=== PATIENT | male | born 1980 | race Caucasian/White ===

== ENCOUNTER 2018-09-16 06:11 | Day surgery (SDC) | payer BC, OTHER ==
[~2018-09-16] VITALS: Ht 180.3 cm; Wt 97.1 kg
[~2018-09-16 06:11] MED LIST: CLARITIN10 MG PO; NABUMETONE 500500 M1 PO; OMEPRAZOLE40 MG PO
[2018-09-16 09:36] VITALS: BP 130/76
[2018-09-16 14:32] VITALS: BP 130/76
--- NOTE | 2018-09-18 07:03 | O ---
[address] [address] OPERATIVE REPORT Name: LEAH COOK II Room #: DEP [facility]..#: [id number] Admission: 09/16/18 ������������������ Attend Phys: Ashok Cantor MD Discharge: 09/16/18 ������������������ Date of : 82 Report #: [id number] THIS REPORT FOR: //name// CC: SUNITHA Cantor Physician staff DATE OF SERVICE: 09/16/2018 SERVICE: Orthopedics. FACILITY: [facility]. SURGEON: Ashok Cantor MD PANTRY CHEF: Kayla Beal NP. PREOPERATIVE DIAGNOSES: 1. Left hip pain. 2. Left hip impingement syndrome. 3. Left hip labral tear. POSTOPERATIVE DIAGNOSES: 1. Left hip pain. 2. Left hip impingement syndrome. 3. Left hip labral tear. 4. Left hip acetabular chondromalacia. PROCEDURE: 1. Left hip arthroscopic labral repair. 2. Left hip arthroscopic extraarticular subspine acetabuloplasty. 3. Left hip arthroscopic Cam osteochondroplasty. 4. Left hip arthroscopic chondroplasty of the acetabulum. ANESTHESIA: General with regional. COMPLICATIONS: None. DRAINS: None. SPECIMENS: None. FINDINGS: 1. Significant labral tear, treated with Ana CinchLock suture anchor x 3. 2. Grade 3 chondral lesion of the acetabulum with a focal area of grade 4 chondromalacia in the joint. The Gr [address] [address] OPERATIVE REPORT Name: LEAH COOK II Room #: [facility]P [facility].#: [id number] Admission: 09/16/18 ������������������ Attend Phys: Ashok Cantor MD Discharge: 09/16/18 ������������������ Date of : 82 Report #: [id number] was all treated with chondroplasty and was approximately 50% partial thickness pathology. There was a focal area of grade 4 chondromalacia measuring approximately 2 x 1 mm in size. There were no further unstable flap components. 3. Pronounced ridge on the femoral neck causing the Cam impingement with dense bone in this location, treated with Cam osteoplasty. 4. Capsule closed with #2 Vicryl x 5. 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 He is having a long history of many years of left hip pain that has failed extensive conservative measures including physical therapy, rest, activity modifications, oral medications. He has had injections as well, all without sufficient relief. He had imaging, which was suggestive of Cam impingement and he did have a protruding osteophyte of sorts on the femoral neck. He had a small labral tear on the MRI by appearance and the MRI of note showed no evidence of any articular cartilage damage. The [place] grade is zero. We had discussion about the risks, benefits, alternatives and indications of surgical treatment and ultimately he wished to move forward with definitive surgical treatment. Risks include but not limited to pain, bleeding, infection, injury to nerves or blood vessels, persistent pain despite surgical intervention, failure of any repairs, reconstruction, progression of a preexisting chondral injury, stiffness, need for further surgery as well as complications related to anesthesia such as stroke, heart attack, pulmonary complications, thromboembolic disease and . Despite the risks, he wished to proceed. PROCEDURE IN DETAIL: After left lower extremity was correctly identified in the preoperative holding area as the operative extremity, the patient underwent placement of single shot regional nerve block. He was then taken to the operating room where general anesthesia was induced without complications. He was padded appropriately. Prophylactic antibiotics were administered at appropriate time. Left leg was then evaluated under fluoroscopy to identify the extent of the Cam deformity. He was noted to have a prominent bone on the femoral neck as stated as well as traditional Cam deformity that was more subtle. The alpha angle was approximately 60 degrees based on the location of the Cam deformity. Left hip was then prepped and draped in standard sterile fashion. Timeout procedure performed. Traction was applied to the left leg. Standard anterolateral viewing portal was established followed by mid anterior working portal. There was noted to be synovitis present, which is the indication for the continuous passive motion machine, which will be utilized postoperatively to minimize adhesions. There was immediately noted to be a significant amount of articular cartilage damage at the acetabular rim extending from about the 2 o'clock position to the 10 o'clock position equivalently for right hip. There was fraying of the chondral labral junction and the labrum was unstable. Overall, the labral tissue [address] [address] OPERATIVE REPORT Name: LEAH COOK BILL Room #: DEP [facility]#: [id number] Admission: 09/16/18 ������������������ Attend Phys: Ashok Cantor MD Discharge: 09/16/18 ������������������ Date of : 82 Report #: [id number] appeared quite healthy; most of the pathology was at the chondral labral junction and the cartilage itself. The labrum was loose and did require plans for labral repair. The shaver was used to perform a partial chondroplasty and then the capsule was reflected off the dorsal side of the labrum exposing a prominent low lying anterior inferior iliac spine, which was causing extraarticular component to the impingement, and so the bur under fluoroscopy and arthroscopic visualization was used to perform a subspine recession, pushing this portion of the anterior column back to allow more room for the soft tissues to exist without impingement. After this was performed, the acetabular rim was gently abraded with the bur. No rim resection was performed. After the rim was prepared, the first Ana CinchLock suture anchor was placed and a cerclage suture was placed, which provided good compression of the labrum against the acetabular rim. The second and third anchors were then placed in a typical fashion. At this point, the shaver was then again used to complete the chondroplasty working anteriorly and then the scope was placed anteriorly, the working portal made anterolaterally and then a shaver was placed over here completing the chondroplasty laterally as well. The labrum and chondral labral junction was then probed and it was found to have improved stability. The focal area of articular cartilage lesion that was full thickness was visualized, but there was good shouldering and it was small enough that I felt that further treatment beyond the simple chondroplasty would risk more extensive articular cartilage damage, so I elected to leave it in situ. Traction was then let down. The hip was flexed. A transverse capsulotomy was extended down the neck in a T-shape to allow visualization of the entire Cam deformity. The prominent bone was clearly visualized. It was protruding from the femoral neck and was dense and had a sharp edge to it, and was the likely source of the articular cartilage damage. The bur was used to perform a Cam osteoplasty in typical fashion with care taken to ensure that this prominent bone osteophyte was adequately resected and then the instruments were removed. The C-arm was brought in to assess the extent of the resection, identified some additional bone distally that needed resection. Took final x-ray at the proximal and central portion of the resection was adequate and then had just some additional bone identified at the transition on the distal neck. Placed the instruments back into the hip, completed the Cam osteoplasty in this location, lavaged the bony debris out of the hip and then closed the T-shaped capsulotomy with a total of five #2 Vicryl sutures. Instruments were then removed. Portal sites were closed. Sterile dressing was applied. The patient was awakened from anesthesia and taken to recovery room in stable condition. There were no complications. All counts were correct. ��������������������������������������������� <ELECTRONICALLY SIGNED> ���������������������������������������� By: Ashok Cantor MD ��������������������������������������������� 09/18/18 [id number] Ashok Cantor MD /nt
== END 2018-09-16 15:45 | disposition home or self-care (01) ==
LOC: OR 06:11 → TBA 06:11 → OR 11:11
DX: M25.852 Other specified joint disorders, left hip (principal); S73.102A Unspecified sprain of left hip, initial encounter; M94.252 Chondromalacia, left hip; K21.9 Gastro-esophageal reflux disease without esophagitis; Z98.890 Other specified postprocedural states; Z79.899 Other long term (current) drug therapy; Z87.891 Personal history of nicotine dependence; X58.XXXA Exposure to other specified factors, initial encounter; Y93.89 Activity, other specified; Y92.89 Other specified places as the place of occurrence of the external cause; Y99.8 Other external cause status
CPT/HCPCS: 50010; 50101; 50386; 51320; 51538; 52001; 52282; 52304; 52313; 55430; 56524; 56527; 57092; 57103; 62110; 62900; 65060; 70005